=== PATIENT | male | born 1955 | race Caucasian/White ===

== ENCOUNTER → 2018-10-31 | Outpatient (CLI) | payer OTHER ==
[~2018-10-31] MED LIST: ATENOLOL5 GM PO; FELDENE20 MG PO; ROBAXIN 750 MG750 M1 PO; TRAMADOL 50 MG50 MG PO; ZOCOR40 MG PO
--- NOTE | 2018-10-31 11:46 | 2DMMODE ---
[facility] [place] [address] 2 D/M-MODE ECHOCARDIOGRAM Name: LUPE BATISTA Room #: REG [facility] [id number] ������������� Admission: 10/31/18 ������������� Attend Phys: Hector Eddy MD Discharge: ��� ������������� ��� Date of : 51 Date of Service: 10/31/18 1146 �� Report #: [id number] �������� ��������������������������������������������[id number] THIS REPORT FOR: //name// APPROVED REPORT Study performed: 10/31/2018 11:13:22 EXAM: Comprehensive 2D, Doppler, and color-flow Echocardiogram Patient Location: Out-Patient Status: routine BSA: 2.24 HR: 70 bpm BP: 136/84 mmHg Rhythm: Pacemaker Other Information Study Quality: Adequate Indications Pacemaker Cardiomyopathy 2D Dimensions RVDd: 40.13 mm IVSd: 13.26 (7-11mm) LVOT Diam: 22.52 (18-24mm) LVDd: 55.38 mm PWd: 12.70 (7-11mm) Ascending Ao: 37.95 (22-36mm) LVDs: 40.31 (25-40mm) Aortic Root: 32.87 mm Volumes Left Atrial Volume (Systole) Single Plane 4CH: 59.45 mL Single Plane 2CH: 58.81 mL LA ESV Index: 29.00 mL/m2 Aortic Valve AoV Peak Ferny.: 1.26 m/s AO Peak Gr.: 6.33 mmHg LVOT Max P.33 mmHg LVOT Max V: 1.04 m/s SANAZ Vmax: 3.29 cm2 Mitral Valve E/A Ratio: 0.7 MV Decel. Time: 136.85 ms [facility] [place] [address] 2 D/M-MODE ECHOCARDIOGRAM Name: LUPE BATISTA Room #: REG CL [facility]#: [id number] ������������� Admission: 10/31/18 ������������� Attend Phys: Hector Eddy MD Discharge: ��� ������������� ��� Date of : 51 Date of Service: 10/31/18 1146 �� Report #: [id number] �������� ��������������������������������������������[id number] MV E Max Ferny.: 0.75 m/s MV A Ferny.: 1.01 m/s MV PHT: 39.69 ms IVRT: 117.65 ms Pulmonary Valve PV Peak Ferny.: 1.27 m/s PV Peak Gr.: 6.47 mmHg Pulmonary Vein P Vein S: 0.61 m/s P Vein D: 0.32 m/s P Vein S/D Ratio: 1.91 Tricuspid Valve TR Peak Ferny.: 2.86 m/s RAP Estimate: 5.00 mmHg TR Peak Gr.: 32.62 mmHg PA Pressure: 38.00 mmHg Left Ventricle The left ventricle is normal size. Paradoxical septal motion consistent with paced rhythm. Mild concentric left ventricular hypertrophy. Left ventricular systolic function is mildly decreased. LVEF is 45-50%. Mild diastolic dysfunction is present (impaired relaxation pattern). Right Ventricle The right ventricle is normal size. The right ventricular systolic function is normal. Pacemaker lead is present in the right ventricle. Atria The left atrium size is normal. The right atrium size is normal. Aortic Valve The aortic valve is normal in structure. Trace aortic regurgitation. There is no aortic valvular stenosis. Mitral Valve The mitral valve is normal in structure. Mild mitral regurgitation. Tricuspid Valve The tricuspid valve is normal in structure. Mild tricuspid regurgitation. Estimated PAP is 38mmHg. Pulmonic Valve [facility] [place] [address] 2 D/M-MODE ECHOCARDIOGRAM Name: LUPE BATISTA Room #: REG CL [facility]#: [id number] ������������� Admission: 10/31/18 ������������� Attend Phys: Hector Eddy MD Discharge: ��� ������������� ��� Date of : 51 Date of Service: 10/31/18 1146 �� Report #: [id number] �������� ��������������������������������������������[id number] Pulmonic valve is not well visualized. Great Vessels The aortic root is normal in size. The ascending aorta is normal in size. IVC is normal in size and collapses >50% with inspiration. Pericardium There is no pericardial effusion. <Conclusion> The left ventricle is normal size. Mild concentric left ventricular hypertrophy. Left ventricular systolic function is mildly decreased. LVEF is 45-50%. Paradoxical septal motion consistent with paced rhythm. Mild diastolic dysfunction is present (impaired relaxation pattern). The right ventricle is normal size. Pacemaker lead is present in the right ventricle. The left atrium size is normal. Trace aortic regurgitation. Mild mitral regurgitation. Mild tricuspid regurgitation. Estimated PAP is 38mmHg. ��������������������������������������������� <ELECTRONICALLY SIGNED> ���������������������������������������� By: Hector Eddy MD ��������������������������������������������� 10/31/18 1146 1146 1146 Hector Eddy MD /INF
== END ==
LOC: CV 10:47
DX: I08.1 Rheumatic disorders of both mitral and tricuspid valves (principal); Z95.0 Presence of cardiac pacemaker; I44.30 Unspecified atrioventricular block

== ENCOUNTER → 2019-11-19 | Outpatient (CLI) | payer OTHER | LOC: SJCVC 15:12 | DX: R94.31 Abnormal electrocardiogram [ECG] [EKG] (principal); T82.110A Breakdown (mechanical) of cardiac electrode, initial encounter; I44.30 Unspecified atrioventricular block; R00.1 Bradycardia, unspecified; I44.2 Atrioventricular block, complete; I42.8 Other cardiomyopathies; Y71.0 Diagnostic and monitoring cardiovascular devices associated with adverse incidents; Y83.8 Other surgical procedures as the cause of abnormal reaction of the patient, or of later complication, without mention of misadventure at the time of the procedure; Y92.89 Other specified places as the place of occurrence of the external cause ==

== ENCOUNTER 2019-12-01 06:45 | Observation (INO) | payer OTHER ==
[~2019-12-01] VITALS: Ht 177.8 cm; Wt 105.2 kg
[2019-12-01] VITALS (11 sets, daily range): BP systolic 116–147; BP diastolic 70–86
[2019-12-01 07:44] LABS: ABSOLUTE NEUTROPHILS 2.7 thou/uL (1.4-8.2); BASOPHILS 0.8 % (0.0-2.0); HEMATOCRIT 40.8 % (42.0-52.0); HEMOGLOBIN 13.7 gm/dL (14.0-18.0); LYMPHOCYTES 38.4 % (24.0-44.0); MCH 30.8 pg (26.0-34.0); MCHC 33.6 g/dL (28.0-37.0); MCV 91.5 fL (80.0-100.0); MONOCYTES 8.7 % (1.0-8.0); PLATELET COUNT 205 thou/uL (150-400); POLYS 49.1 % (36.0-66.0); RBC 4.46 mil/uL (4.50-6.00); RDW 14.2 % (10.5-14.5); WBC 5.5 thou/uL (4.0-11.0)
[2019-12-01 07:56] LABS: CALCIUM 8.6 mg/dL (8.5-10.1); CREATININE 0.9 mg/dL (0.7-1.3); POTASSIUM 4.3 mmol/L (3.5-5.1); PROTIME 10.1 Seconds (9.3-11.4)
[2019-12-01] MEDS ORDERED: ASA81BEC PO (07:56)
[2019-12-01] MEDS ORDERED: CARVEDILOL12.5 MG PO (07:56)
[2019-12-01] MEDS ORDERED: SIMVASTATIN80 MG PO (07:57)
[2019-12-01] MEDS ORDERED: LISINOPRIL2.5 MG PO (07:57)
[2019-12-01] MEDS ORDERED: DICLOFENAC SOD100 G1 PO (07:58)
[2019-12-01] MEDS ORDERED: FLOMAX0.4 MG PO (07:58)
[2019-12-01] MEDS ORDERED: TRAMADOL 50 MG50 MG PO (07:59)
[2019-12-01 08:02] LABS: ALBUMIN 3.8 g/dL (3.4-5.0); TOTAL BILIRUBIN 0.4 mg/dL (<0.1-1.0); TOTAL PROTEIN 7.2 g/dL (6.4-8.2)
--- NOTE | 2019-12-01 12:09 | NUR ---
PT RETURNS FROM PACU CCU IS CURRENTLY FULL, NO BEDS AVAILABLE. PT IS AWAKE, AND ORIENTED. PACEMAKER INCISION SITE IS WELL APPROXIMATED, NO DRAINAGE, BRUISING OR REDNESS. HEART MONITOR, BP AND 02 SAT MONITOR APPLIED. AT BEDSIDE. PT DENIES ANY PAIN OR SOA. SLING TO LEFT ARM POST PROCEDURE. GOOD PULSES AND CAP REFILL <3 SECONDS TO LEFT HAND. PT SIPPING ON ICE WATER PER HIS REQUEST.
--- NOTE | 2019-12-01 15:56 | NUR ---
ASSUMMED PT CARE AT APPROXIMATELY 1315. PT A&O X4. ASSESSMENT CHARTED. FALL PRECAUTIONS IN PLACE. PT DENIES HAVING CHEST PAIN. PT DENIES HAVING SOB. PT STATED HE HAD SLIGHT PAIN NEAR HIS L PACEMAKER SITE. PT DENIED WANTING ANALGESICS. PT JAS CHEST PACEMAKER SITE C/D/I. NO HEMATOMA. VITAL SIGNS STABLE. PER BIOCHEMISTRY TECHNICIAN RN, THE PT CAN AMBULATE. IMMOBILIZER IN PLACE. PT AMBUALTES STEAADY. PT COMFORTABLE. PT DENIES HAVING FURTHER CONCERNS.
[2019-12-02 00:18] VITALS: BP 114/54
--- NOTE | 2019-12-02 03:33 | NUR ---
PT ALERT AND ORIENTED. VSS. INDEPENDENT IN HIS ROOM. PACEMAKER SITE CLEAR , DRY AND INTACT. C/O SMALL SORENESS. TYLENOL X 1 GIVEN. DENIES CHEST PAIN, NAUSEA OR VOMITING. PT REPORTS MISS HIS BAG THATB HAD ALL HIM MEDICATIONS, LAST HAD IT IN REGISTERED MAIL CLERK. WILL FOLLOW WITH DAY RN. NO OTHER EVENTS OVERNIGHT. REMAINS VPACED AND SOMETIMES AV PACED ON THE MONITOR. RATE WELL CONTROLLED. XRAY SCHEDULED FOR THIS AM. LEFT ARM IMMOBILIZER ON WHOLE NIGHT. X1 DOSE OF ABX ADMINISTERED. NO FURTHER CONCERNS. WILL FOLLOW POC.
[2019-12-02 05:25] VITALS: BP 138/62
[2019-12-02 09:12] VITALS: BP 138/65
[2019-12-02 09:35] VITALS: BP 138/65
--- NOTE | 2019-12-02 11:41 | NUR ---
DISCHARGING TO HOME. DISCHARGE INSTRUCTIONS, LITERATURE GIVEN.
--- NOTE | 2019-12-04 09:29 | P ---
[facility] [place] [address] PROCEDURE REPORT Name: LUPE BATISTA Room #: 219-P [facility] Flavia Clement#: [id number] Admission: 12/01/19 Attend Phys: Woody Weiss MD Discharge: 12/02/19 Date of : 51 Report #: [id number] THIS REPORT FOR: cc: Kam Monterroso MD, Christopher B. MD Couchonnal, Luis F. MD ~ CC: Kam Weiss DATE OF SERVICE: 12/01/2019 PROCEDURE PERFORMED: BiV Pacemaker implantation. PREOPERATIVE DIAGNOSES: 1. Complete heart block. 2. RV lead failure. 3. Nonischemic cardiomyopathy. 4. [place] [employer] Functional Class II heart failure symptoms. HISTORY: The patient is a 64-year-old male with a history of complete heart block, status post dual-chamber pacemaker, [employer] strand and binder controller back in 2006 and most recent generator exchange in 2013. He has been noted to have a climbing RV threshold on his lead and is pacemaker dependent. His most recent echocardiogram shows an EF of 45% and he has [place] [employer] Functional Class II heart failure symptoms. As such, he is here for RV lead revision and placement of LV lead. ANESTHESIA: The patient underwent MAC anesthesia with no anesthesia related complications. DESCRIPTION OF PROCEDURE: The patient underwent informed consent. We discussed the details of the procedure including the risks, which include but not limited to bleeding, infection, vascular damage, cardiac perforation, pneumothorax. He understood these risks and is willing to proceed. The patient was brought to the EP laboratory in a fasting and sedated state. A preprocedural venogram was performed because it appeared that he had some collaterals along the chest and I was concerned that he may be occluded. Venogram showed patency of the left axillary vein, although he did have a very small vessel. The patient received IV antibiotics, was then prepped and draped in a sterile fashion. Then, I injected lidocaine and made an incision over the prior pacemaker, incision was opened. I dissected out the leads. I then attempted to obtain access to left axillary vein. Again, this was somewhat challenging as he had a very small vessel. I dissected out his leads further, so that I could obtain access right under the old leads. I was able to access the vein twice and wires were noted to enter the right atrium. Next, I [facility] [address] [place] [address] PROCEDURE REPORT Name: LUPE BATISTA [id number] Admission: 12/01/19 Attend Phys: Woody Weiss MD Discharge: 12/02/19 Date of : 51 Report #: [id number] positioned an RV lead into the right ventricular apical septum. This had adequate pacing and sensing thresholds. Next, I positioned a short sheath in the left axillary vein and then a coronary sinus sheath into the right atrium. As I was looking for the coronary sinus, I noted that the RV lead had become dislodged. I tried to pull the RV lead from its coiled position. However, there was a lot of tightness at the axillary vein and I could not move the RV lead. Fortunately, it was wrapped up in the right atrium. Therefore, I decided to proceed with the LV lead implantation. I obtained access to the coronary sinus and performed a hand injection and could not see any target vessels, so I used a balloon and showed that he had a very tortuous anterior lateral vessel, he had a posterior lateral branch and he had a middle cardiac vein. I attempted to place the lead into this posterior lateral branch. This was pretty small vessel. I performed another injection and demonstrated that I had a very small dissection near this branch, which was likely the result of my wire or LV lead. I decided to perform another venogram and this time, I could see better the middle cardiac vein. There was no recurrence of this very, very small dissection. I was able to position my guide sheath into the middle cardiac vein and when I injected here it appeared that the posterior lateral branch in the middle cardiac vein essentially had the same distal target location. Therefore, I positioned the LV lead into this middle cardiac vein and the thresholds were great. I split the coronary guide sheath and then I removed the short sheath from the subclavian vessel. The lead had a stable position and thresholds. After removal of these sheaths now I could easily move the RV lead and I positioned this along the high interventricular septum with great thresholds. I therefore sutured the LV and RV leads to the prepectoral fascia. I then connected the old [employer] Ron atrial lead to the new pacemaker and then connected the 2 new leads for the RV and LV lead to the new Medtronic device as well. The old ventricular lead was capped and placed in the pocket. The pocket was irrigated with vancomycin and then closed in 2 layers using 2-0 for the deep layer, 3-0 for the middle layer and surgical glue was placed to the outer skin layer. The patient awoke neurologically and hemodynamically intact with no complications and no significant bleeding. The explanted pacemaker was a [employer] model #2240, serial #[id number], implanted on 07/15/2014. The newly implanted pacemaker was a Medtronic, model #W4TR03, serial #[id number]. The atrial lead was a [employer], model #188511 cm, serial #[id number], implanted on 11/30/2006. The abandoned RV lead was a [employer] model #1688T, 52 cm, serial #[id number]. The newly implanted RV lead was a Medtronic model #5076, serial #[id number] and the new LV lead was a Medtronic model #204749, serial #[id number]. The atrial lead demonstrated P waves of 6.6 millivolts, pacing impedance of 437 ohms, pacing threshold 0.5 volts at 0.5 milliseconds. Of note, the patient has had an infrequent episodes of atrial noise noted on his atrial lead for several years and this was not reproducible during our examination. The RV lead demonstrated R waves of 5.3 millivolts, pacing impedance of 627 ohms and the pacing threshold 0.5 volts at 0.4 milliseconds. The LV lead had good pacing configurations in [facility] [address] [place] [address] PROCEDURE REPORT Name: LUPE BATISTA Room #: 219-P [facility]#: [id number] Admission: 12/01/19 Attend Phys: Woody Weiss MD Discharge: 12/02/19 Date of : 51 Report #: [id number] all pacing vectors and there was no phrenic nerve capture in any of the pacing vectors. We decided to pace the LV lead from its most basal pacing configuration and at this position, the threshold was 0.9 volts at 0.4 milliseconds and the pacing impedance of 1235 ohms. The device was programmed to the DDDR 60-130 mode. The LV lead was programmed to pace 30 milliseconds prior to the RV lead, which resulted in the most narrowing of the QRS complex. His QRS with RV pacing was 160 milliseconds and with Bi-V pacing his QRS was narrow down to 100 milliseconds. CONCLUSIONS: 1. Successful upgrade to a biventricular pacemaker. 2. Successful RV lead revision. 3. Successful right ventricular and left ventricular pacing and sensing thresholds. <ELECTRONICALLY SIGNED> By: Woody Weiss MD 12/04/19 0929 1151 1518 Woody Weiss MD /nt
== END 2019-12-02 12:15 | disposition home or self-care (01) ==
LOC: CATH 06:45 → OR 09:05 → CATH 11:00 → EDSTATUS 12:19 → CATH 13:12 → 2N 13:48 → CATH 14:07 → 2N 12-02 12:15
PROVIDERS: ADMIT Internal Medicine Cardiovascular Disease
DX: T82.118A Breakdown (mechanical) of other cardiac electronic device, initial encounter (principal); I44.2 Atrioventricular block, complete; I42.8 Other cardiomyopathies; Y83.8 Other surgical procedures as the cause of abnormal reaction of the patient, or of later complication, without mention of misadventure at the time of the procedure; Z03.818 Encounter for observation for suspected exposure to other biological agents ruled out; Y92.89 Other specified places as the place of occurrence of the external cause
CPT/HCPCS: 62110; 62900; 70005

== ENCOUNTER → 2019-12-09 | Outpatient (CLI) | payer OTHER ==
[~2019-12-09] MED LIST changes: +ASA81BEC PO; +CARVEDILOL12.5 MG PO; +DICLOFENAC SOD100 G1 PO; +FLOMAX0.4 MG PO; +LISINOPRIL2.5 MG PO; +SIMVASTATIN80 MG PO
== END ==
LOC: SJCVC 10:32
PROVIDERS: ATTEND Internal Medicine Cardiovascular Disease
DX: I45.10 Unspecified right bundle-branch block (principal); R94.31 Abnormal electrocardiogram [ECG] [EKG]; I42.9 Cardiomyopathy, unspecified; I10 Essential (primary) hypertension; E78.00 Pure hypercholesterolemia, unspecified; E78.5 Hyperlipidemia, unspecified; Z79.82 Long term (current) use of aspirin; Z79.899 Other long term (current) drug therapy

== ENCOUNTER → 2020-03-02 | Outpatient (CLI) | payer OTHER | LOC: SJCVC 13:29 | PROVIDERS: ATTEND Internal Medicine Cardiovascular Disease | DX: Z45.018 Encounter for adjustment and management of other part of cardiac pacemaker (principal); R94.31 Abnormal electrocardiogram [ECG] [EKG]; I10 Essential (primary) hypertension; I25.10 Atherosclerotic heart disease of native coronary artery without angina pectoris; I42.8 Other cardiomyopathies; I44.2 Atrioventricular block, complete; Z79.899 Other long term (current) drug therapy ==

== ENCOUNTER → 2020-06-11 | Outpatient (CLI) | payer OTHER | LOC: SJCVCIMAG 09:30 | PROVIDERS: ATTEND Internal Medicine Cardiovascular Disease | DX: I08.1 Rheumatic disorders of both mitral and tricuspid valves (principal); I45.10 Unspecified right bundle-branch block; I11.9 Hypertensive heart disease without heart failure; R94.31 Abnormal electrocardiogram [ECG] [EKG]; I44.2 Atrioventricular block, complete; I42.8 Other cardiomyopathies; I10 Essential (primary) hypertension; E78.00 Pure hypercholesterolemia, unspecified; E78.5 Hyperlipidemia, unspecified; I25.10 Atherosclerotic heart disease of native coronary artery without angina pectoris; Z95.0 Presence of cardiac pacemaker; Z79.82 Long term (current) use of aspirin; Z79.899 Other long term (current) drug therapy ==

== ENCOUNTER → 2020-07-02 | Outpatient (CLI) | payer OTHER | LOC: SJCVCIMAG 07:46 | PROVIDERS: ATTEND Internal Medicine Cardiovascular Disease | DX: I44.2 Atrioventricular block, complete (principal); R06.00 Dyspnea, unspecified; R55 Syncope and collapse; Z95.0 Presence of cardiac pacemaker; Z79.899 Other long term (current) drug therapy ==

== ENCOUNTER → 2020-07-14 | Outpatient (CLI) | payer OTHER | LOC: SJCVC 15:05 | PROVIDERS: ATTEND Internal Medicine | DX: E78.00 Pure hypercholesterolemia, unspecified (principal); I10 Essential (primary) hypertension; I42.9 Cardiomyopathy, unspecified; E78.5 Hyperlipidemia, unspecified; I25.10 Atherosclerotic heart disease of native coronary artery without angina pectoris; Z95.0 Presence of cardiac pacemaker; Z79.82 Long term (current) use of aspirin; Z79.899 Other long term (current) drug therapy ==

== ENCOUNTER → 2020-10-21 | Outpatient (CLI) | payer OTHER ==
[~2020-10-21] VITALS: Ht 177.8 cm; Wt 108.4 kg
[2020-10-21 08:30] VITALS: BP 130/76
--- NOTE | 2020-10-21 11:23 | CATHLAB ---
[facility] [place] [address] INVASIVE PROCEDURE REPORT Name: LUPE BATISTA Room #: REG HENRY Terry#: [id number] Admission: 10/21/20 Attend Phys: Hector Eddy MD Discharge: Date of : 51 Report #: [id number] THIS REPORT FOR: cc: SACHA CHO FAM - No family physician/PCP Hector Eddy MD ~ APPROVED REPORT Study performed: 10/21/2020 09:48:00 Patient Details Patient Status: Out-Patient Room #: The patient is a 65 year-old male Event Personnel Hector Eddy Pewter Fabricator, Kathy Mosley RN RN, Danna Aguilar RTR [employer] Ja[employer]net RTR Monitor Procedures Performed Left Heart Cath w/or w/o Coronaries [id number] [facility] Art Access - R femoral artery* 60838 Initial Mod Sed Same Phys/QHP Gr5y [id number] Hemostasis with Manual pressure Indication Dyspnea, Positive stress test Risk Factors Hypercholesterolemia, Hypertension Procedure Narrative The Right Groin^ was infiltrated with 1% Lidocaine subcutaneous anesthesia. A PINNACLE 4FR Sheath #[id number] sheath was inserted into the RFA^. Coronary angiography was performed using coronary diagnostic catheters. The right coronary system was accessed and visualized with a JR4 catheter. The left coronary system was accessed and visualized with a JL4 catheter. The left ventricle was accessed and visualized with a JL4 catheter. Left ventriculogram was performed in 30 degree projection. Hemostasis was obtained with manual pressure following sheath removal without any complications. The patient tolerated the procedure well and there were no complications associated with the procedure. There was no hematoma. Intraoperative Conscious Sedation Sedation start time: 10:02 Case end Time: [facility] [address] [place] [address] INVASIVE PROCEDURE REPORT Name: LUPE BATISTA Room #: REG CL [facility]#: [id number] Admission: 10/21/20 Attend Phys: Hector Eddy MD Discharge: Date of : 51 Report #: [id number] 10:31 Fentanyl 100 mcg Versed 1 mg Fluoro Time: 2.10 minutes Dose: DAP 3978.00 cGycm2 1087 mGy Contrast Type and Amount: Omnipaque 50 ml Coronary Angiography The patient's coronary anatomy is right dominant. Diagnostic Cath Left Main The left main artery is a large-caliber vessel, appears angiographically normal. LAD The LAD is a moderate to large caliber vessel, traverses the anterior wall and terminates at the apex. This vessel appears angiographically normal. Diagonal 1 This is a small to moderate-sized caliber vessel, patent with no flow-limiting lesions. Diagonal 2 This is a small to moderate-sized caliber vessel, patent with no flow-limiting lesions. Circumflex The left circumflex artery is a moderate-sized caliber vessel, with minimal plaquing noted in the proximal segment. OM1 This is a moderate-sized caliber vessel, appears angiographically normal. OM2 This is a small to moderate-sized caliber vessel, patent with no flow-limiting lesions. Right Coronary The RCA is a dominant vessel, patent with no flow-limiting lesions. R PDA This is a moderate-sized caliber vessel, appears angiographically normal. RPLV This is a small to moderate-sized caliber vessel, patent with no flow-limiting lesions. Left Ventriculography Left Ventriculography was not performed. Ejection Fraction was 50% based off patient's Nuclear Cardiac Stress Test. An LVEDP was measured and there is no gradient across the outflow tract. Hemodynamics The aortic pressure is 117/69 mmHg with a mean of 89 mmHg. The left ventricular pressure is 117/12 mmHg with a mean of mmHg. The left ventricular end diastolic pressure is 16 mmHg. Pullback from the left ventricle to the aorta revealed no gradient across the aortic valve. [facility] [address] [place] [address] INVASIVE PROCEDURE REPORT Name: LUPE BATISTA Room #: REG CL [facility]#: [id number] Admission: 10/21/20 Attend Phys: Hector Eddy MD Discharge: Date of : 51 Report #: [id number] Conclusion 1. The LAD and RCA appear angiographically normal. 2. There is minimal plaquing in the proximal left circumflex artery. 3. There is lownormal LV systolic function. 4. Recommend risk factor management. <ELECTRONICALLY SIGNED> By: Hector Eddy MD 10/21/20 1123 22 22 Hector Eddy MD /INF
== END | disposition home or self-care (01) ==
LOC: CATH 07:54
PROVIDERS: ATTEND Internal Medicine Cardiovascular Disease
DX: R94.39 Abnormal result of other cardiovascular function study (principal); R06.00 Dyspnea, unspecified; I25.10 Atherosclerotic heart disease of native coronary artery without angina pectoris; I10 Essential (primary) hypertension; E78.5 Hyperlipidemia, unspecified; I42.9 Cardiomyopathy, unspecified; F17.210 Nicotine dependence, cigarettes, uncomplicated; Z98.890 Other specified postprocedural states; Z79.899 Other long term (current) drug therapy; Z95.0 Presence of cardiac pacemaker

== ENCOUNTER → 2021-03-02 | Outpatient (CLI) | payer OTHER | LOC: SJCVC 15:28 | PROVIDERS: ATTEND Internal Medicine Cardiovascular Disease | DX: I44.30 Unspecified atrioventricular block (principal); I25.10 Atherosclerotic heart disease of native coronary artery without angina pectoris; I10 Essential (primary) hypertension; E78.5 Hyperlipidemia, unspecified; Z95.0 Presence of cardiac pacemaker; Z79.82 Long term (current) use of aspirin; Z79.899 Other long term (current) drug therapy ==

== ENCOUNTER → 2021-05-30 | Outpatient (CLI) | payer OTHER | LOC: SJCVC 14:45 | PROVIDERS: ATTEND Internal Medicine Cardiovascular Disease | DX: I42.9 Cardiomyopathy, unspecified (principal); I25.10 Atherosclerotic heart disease of native coronary artery without angina pectoris; I10 Essential (primary) hypertension; E78.00 Pure hypercholesterolemia, unspecified; R60.9 Edema, unspecified; E78.5 Hyperlipidemia, unspecified; Z95.0 Presence of cardiac pacemaker; Z79.82 Long term (current) use of aspirin; Z79.899 Other long term (current) drug therapy ==